=== PATIENT | female | born 1985 | race Caucasian/White ===

== ENCOUNTER → 2024-07-30 12:59 | Outpatient (REF) | payer BC, SELFPAY | LOC: HWEVLT 12:59 | PROVIDERS: ATTENDING PHYSICIAN Radiology Vascular & Interventional Radiology | DX: I83.893 Varicose veins of bilateral lower extremities with other complications (principal) | CPT/HCPCS: 93970 ==

== ENCOUNTER → 2024-12-16 09:28 | Outpatient (REF) | payer BC, SELFPAY | LOC: HWEVLT 09:28 | PROVIDERS: ATTENDING PHYSICIAN Radiology Diagnostic Radiology | DX: I83.891 Varicose veins of right lower extremity with other complications (principal) | CPT/HCPCS: 36478 ==

== ENCOUNTER → 2024-12-30 11:17 | Outpatient (REF) | payer BC, SELFPAY | LOC: HWEVLT 11:17 | PROVIDERS: ATTENDING PHYSICIAN Radiology Diagnostic Radiology | DX: I83.891 Varicose veins of right lower extremity with other complications (principal) | CPT/HCPCS: 93971 ==